=== PATIENT | female | born 1985 | race Two or more races ===

== ENCOUNTER 2024-11-25 06:55 | Day surgery (SDC) | payer MEDICAID, SELFPAY ==
[2024-11-25] VITALS (7 sets, daily range): BP systolic 121–160; BP diastolic 71–98; PULSE 54–75; RESP 16–26; TEMP 36.5; O2SAT 99–100; BMI 20.3
[2024-11-25] MEDS: SODIUM CHLORIDE 0.9% 500 ML 500 ML 20 ML IV (07:25)
[2024-11-25] MEDS: fentaNYL CIT INJ 50 mCg/ML AMP 2ML (ASD USE ONLY) IVP (07:26)
[2024-11-25 07:27] LABS: HCG Qualitative,Urine Negative
--- NOTE | 2024-11-25 07:28 | SUR.PREOP ---
HCG Pending and MD ok to go to procedure with out results. Patient LMP 11/20/24
[2024-11-25] MEDS: MIDAZOLAM INJ 1 MG/ML VIAL 2 ML (ASD USE ONLY) 2 MG IVP (07:31)
== END 2024-11-25 08:18 | disposition home or self-care (01) ==
PROVIDERS: PCP Family Medicine; Referring Provider Surgery; Visit Provider Surgery
PROC: 0DBE8ZX Excision of Large Intestine, Via Natural or Artificial Opening Endoscopic, Diagnostic (ICD-10-PCS; CPT 45380; principal; 2024-11-25 07:30)
DX: K64.1 Second degree hemorrhoids (principal); K64.4 Residual hemorrhoidal skin tags
CPT/HCPCS: 45378; 81025; J1200; J2250; J3010; J7999